=== PATIENT | male | born 1960 | race Asian ===

== ENCOUNTER 2020-01-18 05:04 | Day surgery (SDC) | payer OTHER ==
[2020-01-16 11:27] VITALS: BMI 27.8
--- OUTSIDE RECORDS SUMMARY | 2020-01-18 05:27 | XMS ---
:1960 Author Organization [facility] Support Name Relationship Address Phone MTA Unavailable [address] [place] [address] DOMINIQUE BROWN [address] [place] [address] Re-disclosure Warning The records that you are about to access may contain information from federally- assisted alcohol or drug abuse programs. If such information is present, then the following federally mandated warning applies: This information has been disclosed to you from records protected by federal confidentiality rules (42 CFR part 2). The federal rules prohibit you from making any further disclosure of this information unless further disclosure is expressly permitted by the written consent of the person to whom it pertains or as otherwise permitted by 42 CFR part 2. A general authorization for the release of medical or other information is NOT sufficient for this purpose. The Federal rules restrict any use of the information to criminally investigate or prosecute any alcohol or drug abuse patient.The records that you are about to access may contain highly sensitive health information, the redisclosure of which is protected by Article 27-F of the [facility] Public Health law. If you continue you may haveaccess to information: Regarding HIV / AIDS; Provided by facilities licensed or operated by the [facility] Office of Mental Health; or Provided by the [facility] Office for People With Developmental Disabilities. If such information is present, then the following [facility] mandated warning applies: This information has been disclosed to you from confidential records which are protected by state law. State law prohibits you from making any further disclosure of this information without the specific written consent of the person to whom it pertains, or as otherwise permitted by law. Any unauthorized further disclosure in violation of state law may result in a fine or senior living sentence or both. A general authorization for the release of medical or other information is NOT sufficient authorization for further disclosure. Insurance Providers Payer name Policy type / Policy ID Covered Covered democrat's Policy Plan Coverage type democrat ID relationship to Guerrier Information guerrier [employer] HMO [id number] SP [id number] [employer] O [id number] SP [id number] Results ID Date Data Source [id number] 01/14/2020 05:35:00 PM EDT [facility] Name Value Range Interpretation Description Data Sup porting Code Source(s) Document(s ) SARS [facility] coronavirus 2 RNA This lab was ordered by [facility] and reported by [facility]. Procedure
[2020-01-18] MEDS ORDERED: ACETAMINOPHEN 325 MG TABLET (FP) ONE (09:07)
[2020-01-18 09:49] VITALS: BP 127/72; PULSE 61; TEMP 97.9
--- NOTE | 2020-01-21 18:58 | PATH ---
Surgical Pathology Report Patient Name: [place] ALMANZ[facility]. Rec. #: [id number] /Age/Gender: 1960 (Age: 59) / M Account: [id number] Location: [facility]SU-ENDOSCOPY Taken: 01/18/2020 Received: 01/18/2020 Reported: 01/21/2020 Physicians: Cristina Mckeon M.D. Specimen(s) Received A: TRANSVERSE COLON POLYP B: SIGMOID POLYP Clinical History Colon cancer screening Postoperative diagnosis: Polyps, diverticulosis Final Diagnosis A. TRANSVERSE COLON, POLYP, BIOPSY: COLONIC MUCOSA WITH SUPERFICIAL HYPERPLASTIC FEATURES. B. SIGMOID COLON, POLYP, BIOPSY: HYPERPLASTIC POLYP. Electronically Signed Ryanne Sanchez M.D. Gross Description A. Received in formalin, labeled "biopsy transverse colon polyp" are 2 soriano, irregular portions of soft tissue measuring 0.4 and 0.8 cm. in greatest dimension. The specimens are submitted in toto in one cassette. B. Received in formalin, labeled "biopsy sigmoid polyp" are 4 soriano, irregular portions of soft tissue averaging 0.3 cm. in greatest dimension. The specimens are submitted in toto in one cassette. DL/01/18/2020 saudi01/18/2020
== END 2020-01-18 09:54 | disposition home or self-care (01) ==
LOC: JASU-ENDO 05:04
PROVIDERS: ATTEND Internal Medicine Gastroenterology
PROC: 0DBL8ZX Excision of Transverse Colon, Via Natural or Artificial Opening Endoscopic, Diagnostic (ICD-10-PCS; 2020-01-18)
PROC: 0DBN8ZX Excision of Sigmoid Colon, Via Natural or Artificial Opening Endoscopic, Diagnostic (ICD-10-PCS; principal; 2020-01-18 08:00)
DX: Z12.11 Encounter for screening for malignant neoplasm of colon (principal); D12.5 Benign neoplasm of sigmoid colon; D12.3 Benign neoplasm of transverse colon; K64.8 Other hemorrhoids; K57.30 Diverticulosis of large intestine without perforation or abscess without bleeding
CPT/HCPCS: 88305-TC